=== PATIENT | male | born 1970 | race Caucasian/White ===

== ENCOUNTER 2017-02-03 18:38 | Emergency (ER) | payer BC ==
[2017-02-03 19:18] LABS: #Eosinphils 0.1 thou/uL (0.0-0.7); %Basophils 0.4 % (0.0-1.0); %Eosinophils 0.6 % (0.0-10.0); %Lymphocytes 21.7 % (21.0-51.0); %Monocytes 11.3 % (0.0-10.0); Hematocrit 51.6 % (42.0-52.0); Mean Platelet Volume 7.9 fL (7.4-10.4); Red Blood Cell (RBC) Count 5.83 mill/uL (4.70-6.10); White Blood Cell (WBC) Count 9.1 thou/uL (4.8-10.8)
[2017-02-03 19:23] LABS: Bilirubin Negative (Negative); Blood, Urine Negative (Negative); Glucose, Urine (Dipstick) Negative (Negative); Ketone, Urine Negative (Negative); Nitrite Negative (Negative); Protein, Urine (Dipstick) Negative (Neg-Trace); Urobilinogen 0.2 mg/dL (0.2-1.0)
[2017-02-03 19:39] LABS: ALT (SGPT) 47 U/L (8-55); AST (SGOT) 23 U/L (5-34); Alkaline Phosphatase 57 U/L (40-150); Anion Gap 14 mmol/L (10-20); BUN (Urea Nitrogen) 12 mg/dL (8.9-20.6); Calc. Creatinine Clearance 0 mL/min (70-130); Calcium 9.2 mg/dL (7.8-10.44); Carbon Dioxide 26 mmol/L (22-29); Chloride 103 mmol/L (98-107); Estimated GFR-MDRD 85; Globulin 3.6 g/dL (2.4-3.5); Protein, Total 7.9 g/dL (6.0-8.3)
[2017-02-03] MEDS ORDERED: Sulfameth/Trimethoprim DS 800-160mg TAB ONE (20:12)
--- NOTE | 2017-02-19 13:27 | EKG ---
Test Reason : Blood Pressure : / mmHG Vent. Rate : 111 BPM Atrial Rate : 111 BPM P-R Int : 160 ms QRS Dur : 098 ms QT Int : 322 ms P-R-T Axes : 040 032 -01 degrees QTc Int : 437 ms Sinus tachycardia Incomplete right bundle branch block Possible Inferior infarct , age undetermined Anteroseptal infarct , age undetermined Abnormal ECG Confirmed by RAMONE OLSON ([id number]), editor publications MAURIZIO AYALA ([id number]) on 02/19/2017 1:26:30 PM Referred By: Confirmed By:RAMONE OLSON
== END 2017-02-03 21:06 | disposition home or self-care (01) ==
LOC: ERS 18:38
DX: K59.00 Constipation, unspecified (principal)
CPT/HCPCS: 36415; 80053; 81003; 83605; 85025; 93005; 96360; 96361